=== PATIENT | male | born 1975 | race Caucasian/White ===

== ENCOUNTER → 2019-04-05 11:00 | Outpatient (BNVA) | payer MEDICARE, MEDICAID, SELFPAY | PROVIDERS: Visit Provider Nurse Practitioner | DX: E55.9 Vitamin D deficiency, unspecified (principal); Z79.899 Other long term (current) drug therapy; Z13.6 Encounter for screening for cardiovascular disorders; R53.83 Other fatigue | CPT/HCPCS: 80053; 80061; 81001; 82306; 83036; 84439; 84443; 84481; 85025 ==

== ENCOUNTER → 2019-04-22 13:38 | Outpatient (BNVA) | payer MEDICARE, MEDICAID, SELFPAY | PROVIDERS: Visit Provider Specialist | DX: G35 Multiple sclerosis (principal) | CPT/HCPCS: 99213 ==

== ENCOUNTER → 2020-04-20 13:20 | Outpatient (BNVA) | payer MEDICARE, MEDICAID, SELFPAY | PROVIDERS: Visit Provider Specialist | DX: G35 Multiple sclerosis (principal) | CPT/HCPCS: 99214 ==

== ENCOUNTER → 2022-03-01 15:05 | Outpatient (BNVA) | payer MEDICARE, MEDICAID, SELFPAY | PROVIDERS: Visit Provider Nurse Practitioner | DX: R07.89 Other chest pain (principal); R07.9 Chest pain, unspecified; Z82.49 Family history of ischemic heart disease and other diseases of the circulatory system | CPT/HCPCS: 80053; 80061; 85025 ==

== ENCOUNTER 2022-05-02 09:28 | Outpatient (CLI) | payer MEDICARE, MEDICAID, SELFPAY ==
--- NOTE | 2022-05-02 09:58 | ECG_ITS ---
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 Interpretive Statements NAME OF STUDY: LEXISCAN SESTAMIBI STRESS TEST INDICATION: Chest Pain, PROCEDURE: At the baseline, the EKG revealed sinus bradycardia with a normal ST Ts. The baseline heart was 53 bpm with a blood pressue of 121/62 mm of Hg Lexiscan was infused over a period of 20 seconds. A total of 0.4 milligrams of Lexiscan was infused. The stress phase was continued for a total of 5 minutes. Heart rate at the end of the stress phase was 77 bpm with a blood pressure 135/84 mm of Hg. The EKG at the peak infusion revealed no significant changes. Sestamibi was injected 20 seconds after the Lexiscan infusion. Heart rate at the end of the recovery phase was 92 bpm with a blood pressure of 129/81 mm of Hg. CONCLUSION: 1. No significant EKG changes with the LexiScan infusion 2. No LexiScan induced chest pain or cardiac arrhythmia 3. Normal blood pressure and heart rate response 4. Sestamibi/sestamibi perfusion scan pending; see separate report. Electronically Signed On 05-03-2022 0:23:13 CDT by Jyoti Lara M.D. [email or web address]
[2022-05-02 09:59] VITALS: BMI 30.9
--- NOTE | 2022-05-02 09:59 | NMCV_ITS ---
NM hood perf SPECT r/s* [id number] Blink, Anuj Age: 47 Gender: M : 1975 Exam Date: 05/02/2022 10:34 Ordering Phys: Rosa M Fernandez LIBRARIAN ASSISTANT Technologist: VARGHESE [place] Exam Location: [facility] Indications: CHEST PAIN STRESS TEST Please see separate stress test report in [facility] for full findings IMAGE PROTOCOL Rest/Stress 1 Lexiscan Day Radiopharmaceutical Dose (mCi) Administration Site Administered by Rest: Tc-99m 10.6 IV VARGHESE Leon Sestamibi Stress:Tc-99m 32.7 IV VARGHESE Leon Sestamibi Rest: 02-May-2022 60 Discovery 630 Stress: 02-May-2022 30 Discovery 630 0.4mg Lexiscan. Images obtained in supine and prone position. SPECT RESULTS Technical Quality: Excellent Raw Data Analysis: Normal Image Corrections: No attenuation or motion correction applied Summed Stress Score: 0 Summed Rest Score: 0 Summed Difference Score: 0 PERFUSION FINDINGS Uniform myocardial tracer uptake with no significant perfusion abnormalities FUNCTIONAL RESULTS (calculated via Gated SPECT) Stress Image LV EF (%): 74 Stress EDV (mL):110 TID: 1 Stress ESV (mL):29 FUNCTIONAL FINDINGS: Segmental wall motion analysis revealing no gross wall motion abnormalities IMPRESSIONS 1. Myocardial perfusion imaging revealing uniform myocardial tracer uptake with no significant perfusion abnormalities. 2. Normal LV ejection fraction of 74% 3. LV wall motion analysis revealing no gross wall motion abnormalities. 4. Normal LV volume . Low probability for coronary ischemia, based on the above findings Dr Jyoti Lara MD FAC (Electronically Signed) Final Date: 02 May 2022 16:28 S
[2022-05-02] MEDS: regadenoson 0.4 Mg/5 ml Syringe IVP (11:28)
--- NOTE | 2022-05-02 11:34 | PC.NURSE ---
Patient unable to walk on the treadmill. His right foot drags. Dr. Lara was notified and the test was changed to a lexiscan sestamibi. The patient verbalized his understanding and wishes to proceed.
[2022-05-02 12:02] VITALS: BP 130/80; PULSE 78
== END 2022-05-02 09:29 | disposition home or self-care (01) ==
PROVIDERS: Visit Provider Nurse Practitioner
DX: R07.9 Chest pain, unspecified (principal)
CPT/HCPCS: 36415; 78452; 93017; 96374; A9500; J2785